=== PATIENT | male | born 1995 | race Caucasian/White ===

== ENCOUNTER 2016-07-02 04:06 | Emergency (ER) | payer OTHER ==
[2016-07-02 07:31] LABS: HEMOGLOBIN 15.2 gm/dl (14.0-17.5); RED BLOOD COUNT 5.15 M/UL (4.20-5.50); WHITE BLOOD COUNT 13.7 K/UL (4.5-11.0)
== END 2016-07-02 13:30 | disposition home or self-care (01) ==
LOC: ER1 04:06
PROVIDERS: Physician Assistant
DX: N17.9 Acute kidney failure, unspecified (principal); K59.00 Constipation, unspecified; N20.0 Calculus of kidney
CPT/HCPCS: 36415; 74000; 80053; 81001; 85025; 96374; 96375; 96376; 99284; J2270; J2405; J7030

== ENCOUNTER 2021-07-16 20:47 | Emergency (ER) | payer OTHER ==
[2021-07-17] MEDS ORDERED: IBU600 MG PO (01:04)
== END 2021-07-17 01:10 | disposition home or self-care (01) ==
LOC: ER1 20:47
DX: S76.011A Strain of muscle, fascia and tendon of right hip, initial encounter (principal); W01.198A Fall on same level from slipping, tripping and stumbling with subsequent striking against other object, initial encounter; Y92.009 Unspecified place in unspecified non-institutional (private) residence as the place of occurrence of the external cause
CPT/HCPCS: 73502; 99283